=== PATIENT | male | born 1965 | race Caucasian/White ===

== ENCOUNTER 2023-11-21 14:58 | Outpatient (REF) | payer BC, SELFPAY ==
[2023-11-21 16:03] LABS: Abs Immature Grans 0.03 10^3/uL (0.0-0.06); Absolute Basophil Count 0.07 10^3/uL (0.0-0.2); Absolute Eosinophil Count 0.14 10^3/uL (0.0-0.7); Absolute Lymphocyte Count 1.65 10^3/uL (1.2-3.4); Absolute Monocyte Count 0.36 10^3/uL (0.1-0.8); Basophils % 1.2 %; Eosinophils % 2.5 %; HCT 46.1 % (40.0-50.0); HGB 15.4 g/dL (13.5-17.5); Immature Grans % 0.5 %; Lymphocytes % 29.2 %; MCHC 33.4 % (32.0-36.0); MCV 102 fL (80-95); Monocytes % 6.4 %; Neutrophils % 60.2 %; Platelet Count 233 10^3/uL (130-400); RBC 4.53 10^6/uL (4.36-5.78); RDW 12.9 % (11.8-14.1); RDW-SD 48.5 fL; WBC 5.65 10^3/uL (4.4-10.8)
[2023-11-22 09:49] LABS: IgE 10 IU/mL (<158)
== END 2023-11-21 14:59 | disposition home or self-care (01) ==
LOC: LBN 14:58
PROVIDERS: PCP Internal Medicine; Visit Provider Physician Assistant Surgical
DX: J45.909 Unspecified asthma, uncomplicated (principal)
CPT/HCPCS: 82785; 85025